=== PATIENT | male | born 1995 | race Caucasian/White ===

== ENCOUNTER 2020-05-14 15:17 | Emergency (ER) | payer BC, SELFPAY ==
[2020-05-14 15:19] VITALS: BP 145/79; PULSE 71; RESP 17; TEMP 36.8; O2SAT 97; BMI 22.5
--- NOTE | 2020-05-14 15:29 | ED.VIS.GEN ---
History of Present Illness Informant: Patient Onset: Weeks - 1 week Context: Gradual Onset Timing: Continuous Quality: aching Location: right testicle Current Severity: Moderate Maximum Severity: Moderate Worsened by: movement, palpation Relieved by: rest Associated Symptoms: denies Narrative: 24-year-old male presents with right testicular pain. He states it is been constant now for about a week. He was initially having pain around his pubic bone but he is now having most of the pain in his right testicle. He denies trauma or injury. He is not had swelling. He denies any penile discharge, dysuria, hematuria, urinary frequency or urgency. He is not having any abdominal pain. He has been having normal bowel movements. He is sexually active. He is not concerned for STD at this time. He denies a history of similar symptoms. Prior similar symptoms: No Recent Illness/Hospitalization: No <Chato Braxton - Last Filed: 05/14/20 15:34> <Keli Allisono - Last Filed: 05/14/20 16:04> Chief Complaint: Male Pain/Injury Past Medical History Prior records reviewed: Yes Past Medical History: None Surgical History: no surgical history Lives: With Family Smoking Status: Current every day smoker Alcohol: Occasional Drugs: None <Chato Braxton - Last Filed: 05/14/20 15:34> <Keli Allisono - Last Filed: 05/14/20 16:04> - Allergies and Home Meds Allergies/Adverse Reactions: Allergies No Known Allergies Allergy (Verified 05/14/20 15:18) Primary Care Physician: Philip Chin MD [STAFF PHYSICIAN] - Review of Systems All systems negative except as indicated General: Denies: Chills, Fever, Sweats Eyes: Denies: Visual changes - bilaterally, Diplopia ENT: Denies: Rhinorrhea, Sore throat Cardiovascular: Denies: Chest pain, Palpitations Respiratory: Denies: Dyspnea, Cough, Dyspnea on exertion Gastrointestinal: Denies: Abdominal pain, Nausea, Vomiting, Diarrhea, Melena, Hematochezia Genitourinary: Reports: - - Right testicular pain. Denies: Dysuria, Hematuria, Frequency Musculoskeletal: Denies: Back pain, Swelling, Extremity Pain Skin: Denies: Rash, Wounds Neurological: Denies: Headache, Weakness, Numbness <Chato Braxton - Last Filed: 05/14/20 15:34> Physical Exam Vital Signs/Narrative: Vital Signs Temp Pulse Resp BP Pulse Ox 05/14/20 15:19 98.3 F 71 17 145/79 H 97 Inital Vital Signs reviewed: Yes General: Well nourished, Well developed, No Acute Distress Head: Normocephalic, Atraumatic Eyes: Perrl, EOMI ENT: Moist mucous membranes, No rhinorrhea Neck: Supple, Nontender Cardiovascular: Regular rate, Regular rhythm, No murmurs Respiratory: No distress, CTA bilaterally, Chest nontender Abdomen: Soft, Nontender, Nondistended, Normal bowel sounds : - - Patient has no obvious swelling of his scrotum or penis. mild bruising right side of scrotum. There is no penile discharge. Right testicle is tender on palpation. Left testicle is nontender on palpation. No masses are palpated. I do not appreciate an obvious hernia. There is no inguinal lymphadenopathy or redness. Back: Nontender, Normal Inspection Extremities: Nontender, No edema Skin: Normal color, No rash Neurological: Alert, Oriented x3, Cranial nerves II-XII grossly intact, Normal Strength, Normal Sensation Psychological: Normal affect, Normal Mood <Chato Braxton - Last Filed: 05/14/20 15:34> Vital Signs/Narrative: Vital Signs Temp Pulse Resp BP Pulse Ox 05/14/20 15:19 98.3 F 71 17 145/79 H 97 <Mo Allison - Last Filed: 05/14/20 16:04> Diagnostic/Tx/Re-eval - Medical Decision Making At this time the patient clinically does not have a testicular torsion. He does not have any symptoms concerning for an STD. We feel he has a likely traumatic epididymitis. Will place on NSAIDs. He was given Toradol in the emergency department. Discussed scrotal support ice and urology follow-up. <Chato Braxton - Last Filed: 05/14/20 15:34> - Medical Decision Making Patient was seen independently by me. History of right testicular pain for approximately a week. Prior to onset of pain he was riding a bull. He does not remember any specific trauma. He denies dysuria, frequency, urgency or hematuria. He denies penile lesion or discharge. Vital signs noted. There is tenderness over the epididymis. In the proximity of the epididymis the overlying scrotum has a hematoma/bruise. Testicular lie is normal. Positive cremasteric reflex bilaterally. No penile lesion or discharge noted. Patient was treated for traumatic epididymitis. <Mo Allison - Last Filed: 05/14/20 16:04> ED Disposition <Chato Braxton - Last Filed: 05/14/20 15:34> <Mo Allison - Last Filed: 05/14/20 16:04> - Plan for ED Patient: Disposition: Home or Assisted Living Diagnosis: traumatic epididymitis Instructions: ED Epididymitis Prescriptions: Naproxen [Naprosyn] 500 mg PO BID #20 tab Transmission Status: Received by [id number] Referrals: Philip Chin MD [STAFF PHYSICIAN] -
[2020-05-14 15:40] LABS: Bacteria 0 SEEN /hpf (None Seen); Mucous, Urine 0 SEEN /hpf (<or=2+); Red Blood Cells-Urine 0 SEEN /hpf (0-5); Squamous Epithelial Cells - UA 0 SEEN /hpf (0-5); White Blood Cells 0 SEEN /hpf (0-5)
[2020-05-14] MEDS: Ketorolac 60 MG/2 ML Vial IM (15:57)
[2020-05-14 16:13] VITALS: BP 120/71; PULSE 78; RESP 15; O2SAT 99
[2020-05-14 16:34] LABS: Color, Urine Yellow (Yellow); Glucose, Dipstick Normal (Normal); Ketone-Dipstick Negative (Negative); Leukocyte Esterase-Dipstick Negative /ul (Negative); Nitrite-Dipstick Negative (Negative); Occult Blood-Urine Negative /ul (Negative); Protein-Dipstick Negative (Negative); Specific Gravity, Urine 1.015 (1.002-1.030); Urine Bilirubin Dipstick Negative (Negative); Urine Clarity Clear (Clear); Urine Urobilinogen Normal (Normal)
== END 2020-05-14 16:27 | disposition home or self-care (01) ==
LOC: ED 15:52
PROVIDERS: Emergency Provider Physician Assistant Medical
DX: N45.1 Epididymitis (principal); F17.200 Nicotine dependence, unspecified, uncomplicated
CPT/HCPCS: 81001; 96372; 99283